=== PATIENT | female | born 1995 | race Caucasian/White ===

== ENCOUNTER 2016-09-04 14:43 | Emergency (ER) | payer BC ==
[2016-09-04 15:24] VITALS: BP 123/69
--- NOTE | 2016-09-04 15:30 | UC ---
Complaint Female HPI - HPI Summary HPI Summary: 1) Urinary frequency, urgency, burning starting 3 days ago. Denies fever or back pain. Long hx of UTIs, has had periods of time when she has had them 2-3 times per month. Denies possibility of . 2) Started coughing about [address], wheezing, fever, sneezing, or itchy eyes. Feels some PND, particularly at night/in the morning. Feels cough in her throat. - History Of Current Complaint Chief Complaint: [facility] Stated Complaint: URINARY SYMPTOMS Time Seen by Provider: 09/04/16 14:46 Hx Obtained From: Patient Hx Last Menstrual Period: 3 WKS AGO Onset/Duration: Gradual Onset, Lasting Days Timing: Constant Severity Initially: Moderate Severity Currently: Moderate Character: Burning Aggravating Factor(s): Urination Associated Signs And Symptoms: Negative: Fever, Back Pain, Vaginal Bleeding/ Discharge, Vaginal Discharge - Allergies/Home Medications Allergies/Adverse Reactions: Allergies Allergy/AdvReac Type Severity Reaction Status Date / Time Amoxicillin [From Augmentin] Allergy Unknown Rash Verified 09/04/16 15:11 Clavulanic Acid Allergy Unknown Rash Verified 09/04/16 15:11 [From Augmentin] Azithromycin [From Zithromax] Allergy Hives Verified 09/04/16 15:11 Home Medications: Home Medications Estradiol & Norethindrone Acet [Estradiol/Norethindrone A] 1 tab PO DAILY [History Confirmed 09/04/16] PMH/Surg Hx/FS Hx/Imm Hx Previously Healthy: Yes - Surgical History Surgical History: None - Family History Known Family History: Positive: None - Social History Occupation: Employed Part-time Alcohol Use: Rare Substance Use Type: None Smoking Status (MU): Never Smoked Tobacco - Immunization History Vaccination Up to Date: Yes Review of Systems Constitutional: Negative Skin: Negative Eyes: Negative ENT: Negative Respiratory: Cough Cardiovascular: Negative Gastrointestinal: Negative Genitourinary: Dysuria, Hematuria, Frequency, Urgency Motor: Negative Neurovascular: Negative Musculoskeletal: Negative Neurological: Negative Psychological: Negative All Other Systems Reviewed And Are Negative: Yes Physical Exam Triage Information Reviewed: Yes Appearance: Well-Appearing, No Pain Distress, Well-Nourished Vital Signs: Initial Vital Signs Temp 98.5 F 09/04/16 15:05 Pulse 79 09/04/16 15:05 Resp 20 09/04/16 15:05 BP 123/69 09/04/16 15:05 Pulse Ox 98 09/04/16 15:05 Vital Signs Reviewed: Yes Eye Exam: Normal Eyes: Positive: Conjunctiva Clear ENT Exam: Normal ENT: Positive: Normal ENT inspection, Hearing grossly normal, Pharynx normal, TMs normal, Other: - no PND noted. Negative: Nasal congestion, Nasal drainage, Tonsillar swelling, Tonsillar exudate Dental Exam: Normal Neck exam: Normal Neck: Positive: Supple, Nontender, No Lymphadenopathy Respiratory Exam: Normal, Other - no cough noted Respiratory: Positive: Chest non-tender, Lungs clear, Normal breath sounds, No respiratory distress, No accessory muscle use Cardiovascular Exam: Normal Cardiovascular: Positive: RRR, No Murmur Abdomen Description: Positive: Nontender. Negative: CVA Tenderness (R), CVA Tenderness (L) Musculoskeletal Exam: Normal Neurological Exam: Normal Neurological: Positive: Alert Psychological Exam: Normal Skin Exam: Normal Complaint Female Dx - Differential Dx/Diagnosis Provider Diagnoses: UTI. acute cough. elevated blood pressure due to discomfort Discharge - Discharge Plan Condition: Stable Disposition: HOME Prescriptions: Albuterol HFA INHALER* [Ventolin HFA Inhaler*] 1 - 2 puff INH Q6H PRN #1 mdi PRN Reason: wheeze Cetirizine* [ZyrTEC 10 MG TAB*] 10 mg PO DAILY #30 tab Nitrofurantoin Monohyd Macro [Macrobid] 100 mg PO BID #14 cap Patient Education Materials: Urinary Tract Infection in Women (ED), Acute Cough (ED) Referrals: Tomy Boyer MD [Primary Care Provider] - Additional Instructions: Call or return if you develop increasing fever, shortness of breath, chest pain , bloody sputum, or otherwise worsen. If you have not improved at all after several days, contact your primary care physician or return here.
--- NOTE | 2016-09-07 07:00 | ED ---
Progress - Progress Note Progress Note: UCX (-), STOP ABX, follow up with ER/PCP if worse. Course/Dx - Diagnoses Provider Diagnoses: Dysuria
== END 2016-09-04 15:29 | disposition home or self-care (01) ==
LOC: UCCORT 14:43
DX: N39.0 Urinary tract infection, site not specified (principal); R05 Cough; R03.0 Elevated blood-pressure reading, without diagnosis of hypertension; Z88.1 Allergy status to other antibiotic agents
CPT/HCPCS: 81003; 87086; 99211; G0463